=== PATIENT | female | born 1970 | race Caucasian/White ===

== ENCOUNTER 2017-12-17 13:04 | Inpatient (IN) | payer MEDICAID, OTHER, SELFPAY ==
[~2017-12-17] VITALS: Ht 170.2 cm; Wt 105.0 kg
[2017-12-17] MEDS ORDERED: SODIUM CHLORIDE FLUSH 10ML SYR IVF ONE (14:00)
[2017-12-17 14:58] LABS: BASOPHILS # (AUTO) 0.05 x10^3/uL (0-0.1); BASOPHILS % (AUTO) 1 % (0-1); EOSINOPHILS # (AUTO) 0.11 x10^3/uL (0-0.4); EOSINOPHILS % (AUTO) 1 % (1-7); LYMPHOCYTES # (AUTO) 1.43 x10^3/uL (1-3.4); LYMPHOCYTES % (AUTO) 17 % (22-44); MD NO; MEAN CORPUSCULAR HEMOGLOBIN 31.5 pg (27.0-34.8); MEAN CORPUSCULAR HGB CONC 33.6 g/dL (32.4-35.8); MEAN CORPUSCULAR VOLUME 93.5 fL (80-100); MEAN PLATELET VOLUME 7.6 fL (7.4-10.4); MONOCYTES % (AUTO) 7 % (2-9); NEUTROPHILS # (AUTO) 6.39 x10^3/uL (1.8-6.8); NEUTROPHILS % (AUTO) 75 % (42-75); PLATELET COUNT 323 x10^3/uL (130-400); RED BLOOD COUNT 4.56 x10^6/uL (3.82-5.3); RED CELL DISTRIBUTION WIDTH 13.8 % (9.6-15.2)
[2017-12-17] MEDS ORDERED: SODIUM CHLORIDE 0.9% 1,000ML IVBOLUS ONE (15:00)
[2017-12-17] MEDS ORDERED: morphine SULFATE 10 MG/ML, 1ML IVPush ONE (15:00)
[2017-12-17] MEDS ORDERED: MORPHINE SULFATE 4 MG/ML, 1ML ONE (15:05)
[2017-12-17 15:16] LABS: ALBUMIN 3.2 g/dL (3.4-5.0); ANION GAP 7 mmol/L (5-15); CALCIUM 8.3 mg/dL (8.5-10.1); CHLORIDE 109 mmol/L (98-107)
[2017-12-17] MEDS ORDERED: CLON0.2T PO (15:18)
[2017-12-17] MEDS ORDERED: OLAN20TA3 PO (15:18)
[2017-12-17] MEDS ORDERED: DIVA500T2 PO (15:18)
[2017-12-17] MEDS ORDERED: GABA600T2 PO (15:18)
[2017-12-17 15:22] LABS: ALANINE AMINOTRANSFERASE 17 U/L (12-78); ALKALINE PHOSPHATASE 104 U/L (45-117); BILIRUBIN,TOTAL 0.3 mg/dL (0.2-1.0); TOTAL PROTEIN 6.8 g/dL (6.4-8.2)
[2017-12-17 15:37] LABS: MICROSCOPIC NOT IND
[2017-12-17 15:45] LABS: CULTURE INDICATED? NO
[2017-12-17] MEDS ORDERED: DIVA500T4 PO ×2 (17:54→18:05)
[2017-12-17] MEDS ORDERED: TRAZ150T62 PO (17:54)
[2017-12-17] MEDS ORDERED: NITROGLYCERIN 0.4 MG BOTTLE (25 TABS) SL PRN (18:00)
[2017-12-17] MEDS ORDERED: ACETAMINOPHEN 325 MG TABLET PO PRN (18:00)
[2017-12-17] MEDS ORDERED: hydrALAzine 20 MG/ML, 1ML IVPush PRN (18:00)
[2017-12-17] MEDS ORDERED: ENOXAPARIN 40 MG/0.4 ML SQ SCH (18:00)
[2017-12-17] MEDS ORDERED: DOCUSATE 100 MG CAPSULE PO PRN (18:00)
[2017-12-17] MEDS ORDERED: ONDANSETRON 2MG/ML, 2ML IVPush PRN (18:00)
[2017-12-17 18:21] VITALS: BP 91/58
[2017-12-17] MEDS: IBUPROFEN 200 MG TABLET PO PRN (18:26)
[2017-12-17] MEDS: SODIUM CHLORIDE 0.9% 1,000 ML IV SCH (18:26)
[2017-12-17 18:31] LABS: TROPONIN I < 0.015 ng/mL (0.000-0.045)
[2017-12-17 18:42] LABS: HEMOGLOBIN A1C 4.9 % (4.2-6.3)
[2017-12-17 20:32] VITALS: BP 96/64
[2017-12-17 20:33] VITALS: BP 90/61
[2017-12-17 20:34] VITALS: BP 90/61
[2017-12-17] MEDS ORDERED: OLANZAPINE 10 MG TABLET PO SCH ×2 (21:00→21:34)
[2017-12-17] MEDS ORDERED: DIVALPROEX 500 MG TABLET.DR PO SCH ×2 (21:00)
[2017-12-17] MEDS ORDERED: TRAZODONE 150MG TABLET PO SCH (21:00)
[2017-12-17 21:10] LABS: TROPONIN I < 0.015 ng/mL (0.000-0.045)
[2017-12-17] MEDS: GABAPENTIN 400 MG CAPSULE PO SCH (21:28)
[2017-12-18 01:29] VITALS: BP 96/66
[2017-12-18] MEDS: SODIUM CHLORIDE 0.9% 1,000 ML IV SCH (02:20)
[2017-12-18] MEDS: IBUPROFEN 200 MG TABLET PO PRN ×2 (02:21→13:07)
[2017-12-18 03:25] LABS: BASOPHILS # (AUTO) 0.03 x10^3/uL (0-0.1); BASOPHILS % (AUTO) 1 % (0-1); EOSINOPHILS # (AUTO) 0.22 x10^3/uL (0-0.4); EOSINOPHILS % (AUTO) 4 % (1-7); LYMPHOCYTES # (AUTO) 2.49 x10^3/uL (1-3.4); LYMPHOCYTES % (AUTO) 41 % (22-44); MD NO; MEAN CORPUSCULAR HEMOGLOBIN 31.5 pg (27.0-34.8); MEAN CORPUSCULAR HGB CONC 33.6 g/dL (32.4-35.8); MEAN PLATELET VOLUME 7.4 fL (7.4-10.4); MONOCYTES # (AUTO) 0.63 x10^3/uL (0.2-0.8); MONOCYTES % (AUTO) 10 % (2-9); NEUTROPHILS % (AUTO) 45 % (42-75); PLATELET COUNT 244 x10^3/uL (130-400); RED BLOOD COUNT 3.77 x10^6/uL (3.82-5.3); RED CELL DISTRIBUTION WIDTH 13.5 % (9.6-15.2)
[2017-12-18 03:32] LABS: ANION GAP 7 mmol/L (5-15); CALCIUM 7.5 mg/dL (8.5-10.1); CHLORIDE 111 mmol/L (98-107); CHOLESTEROL, TOTAL 140 mg/dL (140-239); CREATININE 0.89 mg/dL (0.55-1.02); TRIGLYCERIDES 114 mg/dL (50-200); VLDL CHOLESTEROL 23 mg/dL (0-25)
[2017-12-18 03:36] LABS: CHOL/HDL RATIO 2.7; HDL CHOL % 36 % (28-40); HDL CHOLESTEROL (DIRECT) 51 mg/dL (40-60); LDL CHOLESTEROL,CALCULATED 66 mg/dL (54-169); LDL/HDL RATIO 1.3 (0.5-3.0); TROPONIN I < 0.015 ng/mL (0.000-0.045)
[2017-12-18 07:50] VITALS: BP_SYST 102; BP_SYST 108; BP_DIAS 64; BP_DIAS 69
[2017-12-18 08:02] VITALS: BP 109/66
[2017-12-18] MEDS ORDERED: OLANZAPINE 10 MG TABLET PO SCH (09:00)
[2017-12-18] MEDS ORDERED: DIVALPROEX 500 MG TABLET.DR PO SCH (09:00)
[2017-12-18] MEDS: GABAPENTIN 400 MG CAPSULE PO SCH (09:01)
[2017-12-18] MEDS ORDERED: IBUP-1484 PO (11:47)
== END 2017-12-18 14:00 | disposition home or self-care (01) | DRG 563 ==
LOC: ED 15:33 → EDIP 16:46 → 4WST 17:28
PROVIDERS: ADMIT Internal Medicine; ATTEND Internal Medicine
PROC: 2W3QX1Z Immobilization of Right Lower Leg using Splint (ICD-10-PCS; principal; 2017-12-17)
DX: S82.891A Other fracture of right lower leg, initial encounter for closed fracture (principal); F15.20 Other stimulant dependence, uncomplicated; W19.XXXA Unspecified fall, initial encounter; F31.9 Bipolar disorder, unspecified; G47.00 Insomnia, unspecified; E86.1 Hypovolemia; M19.072 Primary osteoarthritis, left ankle and foot; S93.401A Sprain of unspecified ligament of right ankle, initial encounter; S93.402A Sprain of unspecified ligament of left ankle, initial encounter; M19.071 Primary osteoarthritis, right ankle and foot; R26.2 Difficulty in walking, not elsewhere classified; Z87.891 Personal history of nicotine dependence; Z98.51 Tubal ligation status; Z90.49 Acquired absence of other specified parts of digestive tract; Z90.89 Acquired absence of other organs; Z83.3 Family history of diabetes mellitus; Z82.5 Family history of asthma and other chronic lower respiratory diseases; Z81.8 Family history of other mental and behavioral disorders; Y92.89 Other specified places as the place of occurrence of the external cause; Y99.8 Other external cause status; X50.1XXA Overexertion from prolonged static or awkward postures, initial encounter
CPT/HCPCS: 29515; 36415; 80048; 80053; 80061; 81003; 83036; 83735; 84484; 84703; 85025; 93005; 93306; 96361; 96374; J1650; J2270; J7030